=== PATIENT | female | born 1955 | race Caucasian/White ===

== ENCOUNTER 2018-07-26 18:09 | Emergency (ER) | payer OTHER ==
[~2018-07-26] VITALS: Ht 157.5 cm; Wt 74.8 kg
[2018-07-26 20:40] VITALS: BP 135/90
== END 2018-07-26 20:59 | disposition home or self-care (01) ==
LOC: ER 18:09
DX: T18.2XXA Foreign body in stomach, initial encounter (principal); X58.XXXA Exposure to other specified factors, initial encounter; Y93.89 Activity, other specified; Y99.8 Other external cause status; Y92.89 Other specified places as the place of occurrence of the external cause
CPT/HCPCS: 71046; 74176